=== PATIENT | male | born 1960 | race Caucasian/White ===

== ENCOUNTER 2019-08-28 01:58 | Inpatient (IN) | payer OTHER ==
[~2019-08-28] VITALS: Ht 175.3 cm; Wt 124.7 kg
[2019-08-28] MEDS ORDERED: CEFTRIAXONE SODIUM 2 GM VIAL ONE (02:38)
[2019-08-28] MEDS ORDERED: VANCOMYCIN 1GM+NS 250ML 500 ML IV ONE (02:39)
[2019-08-28] MEDS ORDERED: SODIUM CHLORIDE 0.9% 1000ML 2,000 ML IV ONE (02:40)
[2019-08-28 02:41] LABS: BASOPHILS % (AUTO) 0.2 % (0.0-5.0); EOSINOPHILS % (AUTO) 1.4 % (0.0-8.0); HEMATOCRIT 39.6 % (42-54); LYMPHOCYTES % (AUTO) 3.9 % (21.0-51.0); MEAN CORPUSCULAR HGB CONC 35.6 g/dL (32.0-36.0); MEAN CORPUSCULAR VOLUME 81.5 fL (79-99); PLATELET COUNT (AUTO) 108 K/uL (130-400); RED BLOOD CELL COUNT(AUTO) 4.86 MIL/uL (4.50-6.20); RED CELL DISTRIBUTION WIDTH 13.9 % (11.0-15.5); WHITE BLOOD COUNT (AUTO) 10.7 K/uL (4.8-10.8)
[2019-08-28 02:58] LABS: CARBON DIOXIDE 23 mmol/L (21-32); CHLORIDE 100 mmol/L (101-111); CREATININE 1.7 mg/dL (0.5-1.5); GLOMERULAR FILTR. RATE CALC 44 mL/min (>60); GLUCOSE,RANDOM 127 mg/dL (70-105); POTASSIUM 3.8 mmol/L (3.5-5.1); SODIUM SERUM 135 mmol/L (136-145); UREA NITROGEN, BLOOD 26 mg/dL (7-18)
[2019-08-28 02:59] LABS: INR 1.07 (0.85-1.15); PARTIAL THROMBOPLASTIN TIME 32.7 SEC (26.3-35.5); PROTHROMBIN TIME 11.5 SEC (9.6-11.6)
[2019-08-28] MEDS ORDERED: ONDANSETRON HCL 4 MG/2 ML VIAL ONE (03:10)
[2019-08-28] MEDS ORDERED: ACETAMINOPHEN EXTRA STRENGTH 500 MG TABLET ONE (03:11)
[2019-08-28] MEDS ORDERED: MORPHINE SULFATE 4 MG/1ML SYG ONE ×2 (03:11→04:14)
[2019-08-28 03:13] LABS: ALANINE AMINOTRANSFERASE 48 U/L (12-78); ALBUMIN 3.6 g/dL (3.5-5.0); ASPARTATE AMINOTRANSFERASE 46 U/L (10-37); MYOGLOBIN 196 ng/mL (10-92); TOTAL PROTEIN, SERUM 7.1 g/dL (6.0-8.3); TROPONIN I < 0.04 ng/mL (0.00-0.06)
[2019-08-28 03:20] LABS: CREATINE KINASE, TOTAL 439 U/L (21-232)
[2019-08-28 04:45] LABS: APPEARANCE,URINE Clear (CLEAR); BILIRUBIN,URINE Negative (NEGATIVE); COLOR,URINE Yellow (YELLOW); GLUCOSE, URINE (UA) Negative (NEGATIVE); KETONES,URINE 40 mg/dL (NEGATIVE); LEUKOCYTE ESTERASE ,URINE Negative (NEGATIVE); NITRATE,URINE Negative (NEGATIVE); OCCULT BLOOD,URINE Small (NEGATIVE); PH,URINE 5.5 (5.0-8.0); PROTEIN,URINE POS 2+ mg/dL (NEGATIVE)
[2019-08-28] MEDS ORDERED: SODIUM CHLORIDE 0.9% 1000ML 1,000 ML IV SCH (04:48)
[2019-08-28 04:55] LABS: BACTERIA,URINE None Seen /HPF (None Seen); RBC,URINE 0-1 /HPF (0-1); SQUAMOUS EPITHELIAL CELL,UR Rare /HPF (0-2); WBC,URINE None Seen /HPF (0-1)
[2019-08-28 04:56] LABS: OTHER CASTS, URINE EPITHELIAL CASTS 1+ /LPF (None Seen)
[2019-08-28] MEDS ORDERED: VANCOMYCIN PROTOCOL PER PHARMACY IV SCH (05:00)
[2019-08-28] MEDS ORDERED: LACTULOSE 20 GM/30 ML UDCUP PO PRN (05:00)
[2019-08-28] MEDS ORDERED: ONDANSETRON HCL 4 MG/2 ML VIAL IV PRN (05:00)
[2019-08-28] MEDS ORDERED: ACETAMINOPHEN 325 MG TAB PO PRN (05:00)
[2019-08-28] MEDS ORDERED: HYDRALAZINE HCL 20 MG/ML VIAL IV PRN (05:00)
[2019-08-28] MEDS: ZOSYN 3.375GM+NS 50ML 50 ML IV SCH ×3 (05:00→22:26)
[2019-08-28] MEDS ORDERED: PHARMACY COMMUNICATION MISC SCH (05:45)
[2019-08-28 06:32] LABS: HEMOGLOBIN A1C 4.9 % (4.0-6.0)
[2019-08-28] MEDS ORDERED: ENOXAPARIN SODIUM 40 MG/0.4 ML SYRINGE SQ ONE (08:53)
[2019-08-28] MEDS ORDERED: FAMOTIDINE 20MG TAB 20 MG TAB ONE (08:53)
[2019-08-28] MEDS: ENOXAPARIN SODIUM 40 MG/0.4 ML SYRINGE SQ SCH (09:00)
[2019-08-28] MEDS: FAMOTIDINE 20MG TAB 20 MG TAB PO SCH ×2 (09:00→21:00)
[2019-08-28] MEDS ORDERED: MORPHINE SULFATE 2 MG/ML 1ML SYG ONE (09:02)
[2019-08-28] MEDS ORDERED: COMPOUND IV REFRIGERATED 1 EACH IVSOLN MISC PRN (12:45)
[2019-08-28] MEDS: VANCOMYCIN 1.5 GM in SODIUM CHLORIDE 0.9% 250 ML IV SCH (13:00)
[2019-08-28] MEDS ORDERED: ZOSYN 3.375GM+NS 50ML 50 ML IV ONE (14:13)
--- NOTE | 2019-08-28 14:35 | NUR ---
INITIAL SW met with patient and spouse. Patient lives with spouse, Singh Snowden, [phone]. No home home services or DME. Patient is independent and drives. PCP is Dr. Melvin Call. Pharmacy is [facility] located [facility]. DCP is home. Addendum: 08/28/19 at 1436 by WANDY TURPIN SS Amended: Links added.
[2019-08-28] MEDS ORDERED: ACETAMINOPHEN 325 MG TAB ONE (14:58)
[2019-08-28 19:00] VITALS: BP 111/61
[2019-08-28] MEDS: DOCUSATE SODIUM 100 MG CAP PO SCH (21:43)
[2019-08-28] MEDS: MORPHINE SULFATE 4 MG/1ML SYG IV PRN (21:48)
[2019-08-28] MEDS: ACETAMINOPHEN 325 MG TAB PO PRN (21:48)
[2019-08-28 23:57] VITALS: BP 117/59
[2019-08-29 04:00] VITALS: BP 124/72
[2019-08-29 04:13] LABS: BASOPHILS % (AUTO) 0.4 % (0.0-5.0); HEMATOCRIT 33.2 % (42-54); LYMPHOCYTES % (AUTO) 6.9 % (21.0-51.0); MEAN CORPUSCULAR HEMOGLOBIN 29.4 pg (27.0-33.0); MEAN CORPUSCULAR HGB CONC 35.8 g/dL (32.0-36.0); MONOCYTES % (AUTO) 10.2 % (3.0-13.0); NEUTROPHILS % (AUTO) 81.9 % (40.0-77.0); PLATELET COUNT (AUTO) 98 K/uL (130-400); RED BLOOD CELL COUNT(AUTO) 4.05 MIL/uL (4.50-6.20); RED CELL DISTRIBUTION WIDTH 14.2 % (11.0-15.5); WHITE BLOOD COUNT (AUTO) 8.5 K/uL (4.8-10.8)
[2019-08-29] MEDS: MORPHINE SULFATE 4 MG/1ML SYG IV PRN ×4 (04:33→21:06)
[2019-08-29] MEDS: ZOSYN 3.375GM+NS 50ML 50 ML IV SCH ×3 (04:38→23:51)
[2019-08-29 04:41] LABS: CREATININE 1.1 mg/dL (0.5-1.5); POTASSIUM 3.6 mmol/L (3.5-5.1)
[2019-08-29] MEDS ORDERED: LISI10TA7 PO (04:46)
[2019-08-29] MEDS ORDERED: NAPR-1023 PO (04:46)
[2019-08-29] MEDS ORDERED: MAGN500C15 PO (04:46)
[2019-08-29 08:09] VITALS: BP 116/69
[2019-08-29] MEDS: ENOXAPARIN SODIUM 40 MG/0.4 ML SYRINGE SQ SCH (09:00)
[2019-08-29] MEDS: FAMOTIDINE 20MG TAB 20 MG TAB PO SCH ×2 (09:00→21:00)
[2019-08-29] MEDS: DOCUSATE SODIUM 100 MG CAP PO SCH ×2 (09:33→20:58)
[2019-08-29] MEDS ORDERED: POTASSIUM CHLORIDE 10% ELIXIR 20 MEQ/15 ML UDCUP PO PRN (10:45)
[2019-08-29] MEDS ORDERED: LIDOCAINE HCL-MPF 1% 2ML VIAL IV PRN ×2 (10:45)
[2019-08-29] MEDS ORDERED: POTASSIUM CHLORIDE 20 MEQ ERTAB PO ONE (10:45)
[2019-08-29] MEDS ORDERED: POTASSIUM CHLORIDE 20MEQ/100ML 100 ML IV PRN ×2 (10:45)
[2019-08-29 11:09] VITALS: BP 121/75
[2019-08-29] MEDS: POTASSIUM CHLORIDE 20 MEQ ERTAB PO PRN (13:57)
[2019-08-29] MEDS: VANCOMYCIN 1.5 GM in SODIUM CHLORIDE 0.9% 250 ML IV SCH (14:04)
[2019-08-29 16:37] VITALS: BP 124/80
[2019-08-29] MEDS: ACETAMINOPHEN 325 MG TAB PO PRN ×2 (18:29→23:58)
[2019-08-29 20:00] VITALS: BP 110/63
[2019-08-29] MEDS: SODIUM CHLORIDE 0.9% 1000ML 1,000 ML IV SCH (21:15)
[2019-08-30] VITALS (7 sets, daily range): BP systolic 108–160; BP diastolic 64–85
[2019-08-30] MEDS: MORPHINE SULFATE 2 MG/ML 1ML SYG IV PRN ×2 (05:12→17:18)
[2019-08-30 06:04] LABS: BASOPHILS % (AUTO) 0.3 % (0.0-5.0); HEMATOCRIT 35.4 % (42-54); LYMPHOCYTES % (AUTO) 6.3 % (21.0-51.0); MEAN CORPUSCULAR HEMOGLOBIN 28.9 pg (27.0-33.0); MEAN CORPUSCULAR HGB CONC 34.7 g/dL (32.0-36.0); MEAN CORPUSCULAR VOLUME 83.1 fL (79-99); MONOCYTES % (AUTO) 10.1 % (3.0-13.0); NEUTROPHILS % (AUTO) 82.6 % (40.0-77.0); PLATELET COUNT (AUTO) 128 K/uL (130-400); RED BLOOD CELL COUNT(AUTO) 4.26 MIL/uL (4.50-6.20); RED CELL DISTRIBUTION WIDTH 14.2 % (11.0-15.5); WHITE BLOOD COUNT (AUTO) 11.6 K/uL (4.8-10.8)
[2019-08-30] MEDS: ZOSYN 3.375GM+NS 50ML 50 ML IV SCH ×3 (06:04→21:24)
[2019-08-30 06:11] LABS: POTASSIUM 3.5 mmol/L (3.5-5.1)
[2019-08-30] MEDS: ENOXAPARIN SODIUM 40 MG/0.4 ML SYRINGE SQ SCH (09:00)
[2019-08-30] MEDS: FAMOTIDINE 20MG TAB 20 MG TAB PO SCH ×2 (09:00→20:43)
[2019-08-30] MEDS: LISINOPRIL 10 MG TABLET PO SCH (09:23)
[2019-08-30] MEDS: MORPHINE SULFATE 4 MG/1ML SYG IV PRN ×3 (09:23→23:07)
[2019-08-30] MEDS: DOCUSATE SODIUM 100 MG CAP PO SCH ×2 (09:23→21:24)
[2019-08-30] MEDS: SODIUM CHLORIDE 0.9% 1000ML 1,000 ML IV SCH ×2 (10:35→23:02)
[2019-08-30] MEDS ORDERED: VANCOMYCIN 1.5 GM in SODIUM CHLORIDE 0.9% 250 ML IV SCH (16:00)
--- NOTE | 2019-08-30 19:10 | NUR ---
PM Assessment Received pt with spouse at the bedside, NS at 75cc/hr infusing well, routine assessment done, plan of care discuss, reminded to keep left leg elevated on a pillow, per pt stated last BM 08/28/2019 agreed to be medicated with Lactulose in AM. Pt currently denies discomfort.
[2019-08-31 04:00] VITALS: BP 124/78
[2019-08-31] MEDS: MORPHINE SULFATE 4 MG/1ML SYG IV PRN ×3 (04:16→15:17)
[2019-08-31] MEDS: ZOSYN 3.375GM+NS 50ML 50 ML IV SCH ×3 (05:34→21:14)
[2019-08-31 06:48] LABS: BASOPHILS % (AUTO) 0.3 % (0.0-5.0); EOSINOPHILS % (AUTO) 0.4 % (0.0-8.0); HEMATOCRIT 32.2 % (42-54); LYMPHOCYTES % (AUTO) 7.5 % (21.0-51.0); MEAN CORPUSCULAR HEMOGLOBIN 28.6 pg (27.0-33.0); MEAN CORPUSCULAR HGB CONC 34.8 g/dL (32.0-36.0); MEAN CORPUSCULAR VOLUME 82.1 fL (79-99); MONOCYTES % (AUTO) 10.4 % (3.0-13.0); NEUTROPHILS % (AUTO) 80.1 % (40.0-77.0); PLATELET COUNT (AUTO) 139 K/uL (130-400); RED BLOOD CELL COUNT(AUTO) 3.92 MIL/uL (4.50-6.20); RED CELL DISTRIBUTION WIDTH 13.9 % (11.0-15.5)
[2019-08-31 06:59] LABS: CREATININE 0.8 mg/dL (0.5-1.5); POTASSIUM 3.3 mmol/L (3.5-5.1)
[2019-08-31 08:00] VITALS: BP 123/76
[2019-08-31] MEDS: FAMOTIDINE 20MG TAB 20 MG TAB PO SCH ×2 (09:00→21:00)
[2019-08-31] MEDS: POTASSIUM CHLORIDE 20 MEQ ERTAB PO PRN ×2 (10:06→15:16)
[2019-08-31] MEDS: DOCUSATE SODIUM 100 MG CAP PO SCH ×2 (10:06→21:14)
[2019-08-31] MEDS: LISINOPRIL 10 MG TABLET PO SCH (10:07)
[2019-08-31] MEDS: ENOXAPARIN SODIUM 40 MG/0.4 ML SYRINGE SQ SCH (10:13)
[2019-08-31 11:00] VITALS: BP 149/96
[2019-08-31] MEDS: SODIUM CHLORIDE 0.9% 1000ML 1,000 ML IV SCH ×2 (13:15→20:45)
[2019-08-31 16:00] VITALS: BP 113/58
[2019-08-31] MEDS ORDERED: VANCOMYCIN 1.5 GM in SODIUM CHLORIDE 0.9% 250 ML IV SCH (18:15)
[2019-08-31 20:24] VITALS: BP 122/75
[2019-09-01] VITALS (7 sets, daily range): BP systolic 95–143; BP diastolic 58–99
[2019-09-01] MEDS: VANCOMYCIN 1.25 GM in SODIUM CHLORIDE 0.9% 250 ML IV SCH ×2 (02:08→10:15)
[2019-09-01] MEDS: ZOSYN 3.375GM+NS 50ML 50 ML IV SCH ×3 (05:13→22:06)
[2019-09-01] MEDS: LISINOPRIL 10 MG TABLET PO SCH (08:44)
[2019-09-01] MEDS: ENOXAPARIN SODIUM 40 MG/0.4 ML SYRINGE SQ SCH (08:44)
[2019-09-01] MEDS: DOCUSATE SODIUM 100 MG CAP PO SCH ×2 (08:44→22:06)
[2019-09-01] MEDS: FAMOTIDINE 20MG TAB 20 MG TAB PO SCH ×2 (09:00→21:00)
[2019-09-01] MEDS: MORPHINE SULFATE 4 MG/1ML SYG IV PRN ×3 (11:27→22:09)
[2019-09-01 13:26] LABS: HEMATOCRIT 35.5 % (42-54); MEAN CORPUSCULAR HEMOGLOBIN 28.7 pg (27.0-33.0); MEAN CORPUSCULAR HGB CONC 34.6 g/dL (32.0-36.0); MEAN CORPUSCULAR VOLUME 82.8 fL (79-99); PLATELET COUNT (AUTO) 197 K/uL (130-400); RED BLOOD CELL COUNT(AUTO) 4.29 MIL/uL (4.50-6.20); RED CELL DISTRIBUTION WIDTH 13.8 % (11.0-15.5); WHITE BLOOD COUNT (AUTO) 10.4 K/uL (4.8-10.8)
[2019-09-01 13:43] LABS: ALBUMIN 2.1 g/dL (3.5-5.0); CREATININE 0.9 mg/dL (0.5-1.5); POTASSIUM 4.2 mmol/L (3.5-5.1); TOTAL PROTEIN, SERUM 6.5 g/dL (6.0-8.3)
[2019-09-01] MEDS: FUROSEMIDE 10 MG/ML 4ML VIAL IV SCH (17:46)
[2019-09-02] VITALS (7 sets, daily range): BP systolic 112–126; BP diastolic 68–83
[2019-09-02] MEDS: VANCOMYCIN 1.25 GM in SODIUM CHLORIDE 0.9% 250 ML IV SCH ×3 (01:27→18:31)
[2019-09-02] MEDS ORDERED: SODIUM CHLORIDE 0.9% 250 ML IV ONE (01:30)
[2019-09-02] MEDS: MORPHINE SULFATE 4 MG/1ML SYG IV PRN ×4 (04:17→20:20)
[2019-09-02] MEDS: ZOSYN 3.375GM+NS 50ML 50 ML IV SCH ×3 (04:45→20:20)
[2019-09-02 05:46] LABS: BASOPHILS % (AUTO) 0.5 % (0.0-5.0); EOSINOPHILS % (AUTO) 1.1 % (0.0-8.0); HEMATOCRIT 31.1 % (42-54); LYMPHOCYTES % (AUTO) 10.2 % (21.0-51.0); MEAN CORPUSCULAR HEMOGLOBIN 28.6 pg (27.0-33.0); MEAN CORPUSCULAR HGB CONC 34.7 g/dL (32.0-36.0); MEAN CORPUSCULAR VOLUME 82.5 fL (79-99); MONOCYTES % (AUTO) 10.1 % (3.0-13.0); NEUTROPHILS % (AUTO) 75.8 % (40.0-77.0); PLATELET COUNT (AUTO) 214 K/uL (130-400); RED BLOOD CELL COUNT(AUTO) 3.77 MIL/uL (4.50-6.20); RED CELL DISTRIBUTION WIDTH 13.7 % (11.0-15.5); WHITE BLOOD COUNT (AUTO) 8.7 K/uL (4.8-10.8)
[2019-09-02 08:17] LABS: ALBUMIN 1.8 g/dL (3.5-5.0); BILIRUBIN,TOTAL 0.8 mg/dL (0.2-1.0); CREATININE 0.9 mg/dL (0.5-1.5); POTASSIUM 3.1 mmol/L (3.5-5.1); TOTAL PROTEIN, SERUM 5.9 g/dL (6.0-8.3)
[2019-09-02] MEDS: FAMOTIDINE 20MG TAB 20 MG TAB PO SCH ×2 (09:00→20:27)
[2019-09-02] MEDS: LISINOPRIL 10 MG TABLET PO SCH (09:01)
[2019-09-02] MEDS: DOCUSATE SODIUM 100 MG CAP PO SCH ×2 (09:01→20:20)
[2019-09-02] MEDS: ENOXAPARIN SODIUM 40 MG/0.4 ML SYRINGE SQ SCH (09:02)
[2019-09-02] MEDS: FUROSEMIDE 10 MG/ML 4ML VIAL IV SCH (16:30)
[2019-09-03] VITALS (7 sets, daily range): BP systolic 114–150; BP diastolic 72–104
[2019-09-03] MEDS: VANCOMYCIN 1.25 GM in SODIUM CHLORIDE 0.9% 250 ML IV SCH ×3 (02:35→21:08)
[2019-09-03] MEDS: ZOSYN 3.375GM+NS 50ML 50 ML IV SCH ×3 (04:04→21:07)
[2019-09-03] MEDS: MORPHINE SULFATE 4 MG/1ML SYG IV PRN (04:04)
[2019-09-03 05:00] LABS: BASOPHILS % (AUTO) 0.4 % (0.0-5.0); HEMATOCRIT 33.5 % (42-54); LYMPHOCYTES % (AUTO) 9.6 % (21.0-51.0); MEAN CORPUSCULAR HEMOGLOBIN 28.7 pg (27.0-33.0); MEAN CORPUSCULAR HGB CONC 34.6 g/dL (32.0-36.0); MEAN CORPUSCULAR VOLUME 82.9 fL (79-99); MONOCYTES % (AUTO) 10.3 % (3.0-13.0); NEUTROPHILS % (AUTO) 77.3 % (40.0-77.0); PLATELET COUNT (AUTO) 261 K/uL (130-400); RED BLOOD CELL COUNT(AUTO) 4.04 MIL/uL (4.50-6.20); RED CELL DISTRIBUTION WIDTH 13.6 % (11.0-15.5); WHITE BLOOD COUNT (AUTO) 10.5 K/uL (4.8-10.8)
[2019-09-03 05:19] LABS: ALBUMIN 1.9 g/dL (3.5-5.0); BILIRUBIN,TOTAL 0.9 mg/dL (0.2-1.0); CREATININE 0.9 mg/dL (0.5-1.5); POTASSIUM 3.5 mmol/L (3.5-5.1); TOTAL PROTEIN, SERUM 6.4 g/dL (6.0-8.3)
[2019-09-03] MEDS: LISINOPRIL 10 MG TABLET PO SCH (08:57)
[2019-09-03] MEDS: DOCUSATE SODIUM 100 MG CAP PO SCH ×2 (08:57→21:07)
[2019-09-03] MEDS: ENOXAPARIN SODIUM 40 MG/0.4 ML SYRINGE SQ SCH (08:57)
[2019-09-03] MEDS: FAMOTIDINE 20MG TAB 20 MG TAB PO SCH ×2 (09:00→21:00)
[2019-09-03] MEDS: MORPHINE SULFATE 2 MG/ML 1ML SYG IV PRN ×3 (09:00→18:17)
[2019-09-03] MEDS: RANITIDINE HCL 15 MG/1 ML PO SCH ×2 (12:38→21:07)
--- NOTE | 2019-09-03 14:10 | NUR ---
RD NOTIFICATION RD CONSULTS DUE TO LOS X 6. LEFT LOWER ULCER AND ABSCESS PRESENT. DIET: HEART HEALTHY. PO INTAKE 50-75% AND REPORTS HAVING MODERATE APPETITE. LABS AND MEDS REVIEWED. LBM: 09/01. RD RECOMMENDS TO ADD 30ML PROMOD BID TO DIET ORDER Addendum: 09/03/19 at [address] Amended: Links added.
[2019-09-03] MEDS: FUROSEMIDE 10 MG/ML 4ML VIAL IV SCH (18:18)
[2019-09-04 03:00] VITALS: BP 131/78
[2019-09-04] MEDS: VANCOMYCIN 1.25 GM in SODIUM CHLORIDE 0.9% 250 ML IV SCH ×3 (04:40→21:58)
[2019-09-04] MEDS: ZOSYN 3.375GM+NS 50ML 50 ML IV SCH ×3 (04:40→21:57)
[2019-09-04 04:54] LABS: BASOPHILS % (AUTO) 0.6 % (0.0-5.0); HEMATOCRIT 31.6 % (42-54); LYMPHOCYTES % (AUTO) 9.9 % (21.0-51.0); MEAN CORPUSCULAR HEMOGLOBIN 28.5 pg (27.0-33.0); MEAN CORPUSCULAR HGB CONC 34.5 g/dL (32.0-36.0); MEAN CORPUSCULAR VOLUME 82.7 fL (79-99); MONOCYTES % (AUTO) 10.7 % (3.0-13.0); NEUTROPHILS % (AUTO) 77.1 % (40.0-77.0); PLATELET COUNT (AUTO) 244 K/uL (130-400); RED BLOOD CELL COUNT(AUTO) 3.82 MIL/uL (4.50-6.20); RED CELL DISTRIBUTION WIDTH 13.4 % (11.0-15.5)
[2019-09-04] MEDS: MORPHINE SULFATE 4 MG/1ML SYG IV PRN (05:06)
[2019-09-04 05:30] LABS: ALBUMIN 1.8 g/dL (3.5-5.0); BILIRUBIN,TOTAL 0.8 mg/dL (0.2-1.0); CREATININE 0.9 mg/dL (0.5-1.5); POTASSIUM 3.3 mmol/L (3.5-5.1); TOTAL PROTEIN, SERUM 6.3 g/dL (6.0-8.3)
[2019-09-04 08:06] VITALS: BP 130/85
[2019-09-04] MEDS: POTASSIUM CHLORIDE 20 MEQ ERTAB PO PRN (08:58)
[2019-09-04] MEDS: RANITIDINE HCL 15 MG/1 ML PO SCH ×2 (08:58→21:57)
[2019-09-04] MEDS: LISINOPRIL 10 MG TABLET PO SCH (08:58)
[2019-09-04] MEDS: DOCUSATE SODIUM 100 MG CAP PO SCH ×2 (08:58→21:57)
[2019-09-04] MEDS: ENOXAPARIN SODIUM 40 MG/0.4 ML SYRINGE SQ SCH (08:59)
[2019-09-04] MEDS: FAMOTIDINE 20MG TAB 20 MG TAB PO SCH ×2 (09:00→21:00)
[2019-09-04] MEDS ORDERED: POTASSIUM CHLORIDE 20 MEQ ERTAB PO SCH (09:45)
[2019-09-04] MEDS ORDERED: HYDROCODONE/ACETAMINOPHEN 5/325 MG TAB PO SCH (09:45)
[2019-09-04 12:00] VITALS: BP 132/88
--- NOTE | 2019-09-04 15:15 | NUR ---
REFERRAL SENT TO [facility] FOR [facility] FACE SHEET AND ORDER SENT TO CHECK BENENFITS. [facility]TON CALLED BACK WITH CONFIRMATION OF SNF BENEFITS, AND REFERRAL SENT EXCEPT [facility] AT LEAST TOMORROW Addendum: 09/04/19 at 1521 by RAFIQ BARRIENTOS RN CM Amended: Links added.
[2019-09-04 15:42] LABS: INR 1.07 (0.85-1.15); PROTHROMBIN TIME 11.5 SEC (9.6-11.6)
[2019-09-04 16:00] VITALS: BP 133/76
[2019-09-04] MEDS: FUROSEMIDE 10 MG/ML 4ML VIAL IV SCH (16:30)
[2019-09-04] MEDS: HYDROCODONE/ACETAMINOPHEN 5/325 MG TAB PO PRN (17:26)
[2019-09-04 19:57] VITALS: BP 124/72
--- NOTE | 2019-09-04 21:38 | NUR ---
PHARMACY SPOKE TO PHARMACIST SAMANTHA REGARDING MISSED DRAW OF VANCO TROUGH DUE 09/03 @ 1800. HE INSTRUCTED ME TO GIVE THE NEXT SCHEDULED DOSES FROM 2000 AND 0400. DRAW THE VANCO TROUGH PRIOR TO 1200 DOSE TOMORROW.
[2019-09-04 23:54] VITALS: BP 123/79
[2019-09-05] MEDS: HYDROCODONE/ACETAMINOPHEN 5/325 MG TAB PO PRN ×2 (00:10→12:17)
[2019-09-05 03:47] VITALS: BP 121/77
[2019-09-05] MEDS: VANCOMYCIN 1.25 GM in SODIUM CHLORIDE 0.9% 250 ML IV SCH ×2 (04:47→12:12)
[2019-09-05] MEDS: ZOSYN 3.375GM+NS 50ML 50 ML IV SCH ×2 (04:47→14:32)
[2019-09-05 05:40] LABS: BASOPHILS % (AUTO) 0.5 % (0.0-5.0); HEMATOCRIT 34.3 % (42-54); LYMPHOCYTES % (AUTO) 11.2 % (21.0-51.0); MEAN CORPUSCULAR HEMOGLOBIN 28.8 pg (27.0-33.0); MEAN CORPUSCULAR HGB CONC 34.4 g/dL (32.0-36.0); MEAN CORPUSCULAR VOLUME 83.7 fL (79-99); MONOCYTES % (AUTO) 10.7 % (3.0-13.0); PLATELET COUNT (AUTO) 262 K/uL (130-400); RED CELL DISTRIBUTION WIDTH 13.6 % (11.0-15.5); WHITE BLOOD COUNT (AUTO) 8.5 K/uL (4.8-10.8)
[2019-09-05 05:56] LABS: BILIRUBIN,TOTAL 0.8 mg/dL (0.2-1.0); CREATININE 0.9 mg/dL (0.5-1.5); POTASSIUM 3.8 mmol/L (3.5-5.1)
[2019-09-05] MEDS: FAMOTIDINE 20MG TAB 20 MG TAB PO SCH (09:00)
[2019-09-05 09:17] VITALS: BP 132/76
[2019-09-05] MEDS: DOCUSATE SODIUM 100 MG CAP PO SCH (09:19)
[2019-09-05] MEDS: LISINOPRIL 10 MG TABLET PO SCH (09:19)
[2019-09-05] MEDS: ENOXAPARIN SODIUM 40 MG/0.4 ML SYRINGE SQ SCH (09:19)
[2019-09-05] MEDS: RANITIDINE HCL 15 MG/1 ML PO SCH (09:19)
[2019-09-05 11:29] VITALS: BP 138/85
--- NOTE | 2019-09-05 15:17 | NUR ---
DISCHARGE PATIENT GIVEN DISCHARGE INSTRUCTIONS VIA TEACH BACK. PICC LINE TO JESUS PATENT, LAST DRESSING CHANGED 09/04/19. PATIENT TO TRANSFER TO [facility] TODAY. REPORT GIVEN TO JENARO GARVIN. NATALIE PRESENT TO TRANSPORT PATIENT TO [facility] VIA VAN. PATIENT STABLE AT THIS TIME.
== END 2019-09-05 15:30 | DRG 871 ==
LOC: EDH 01:58 → EDHIP 04:48 → 4CH 18:42
PROVIDERS: ADMIT Internal Medicine; ATTEND Internal Medicine
DX: A41.9 Sepsis, unspecified organism (principal); N17.0 Acute kidney failure with tubular necrosis; L03.116 Cellulitis of left lower limb; L97.808 Non-pressure chronic ulcer of other part of unspecified lower leg with other specified severity; Z68.41 Body mass index [BMI] 40.0-44.9, adult; E66.01 Morbid (severe) obesity due to excess calories; E87.6 Hypokalemia; I10 Essential (primary) hypertension; I73.9 Peripheral vascular disease, unspecified; I87.2 Venous insufficiency (chronic) (peripheral); K59.00 Constipation, unspecified; R53.81 Other malaise; M54.9 Dorsalgia, unspecified; Z82.0 Family history of epilepsy and other diseases of the nervous system; Z82.3 Family history of stroke; Z82.49 Family history of ischemic heart disease and other diseases of the circulatory system; Z83.3 Family history of diabetes mellitus; Z82.5 Family history of asthma and other chronic lower respiratory diseases
CPT/HCPCS: 36415; 71045; 73620; 73700; 73718; 76882; 80048; 80053; 80202; 81001; 82550; 83036; 83605; 83874; 84145; 84484; 85025; 85027; 85610; 85730; 87040; 87070; 87076; 87077; 87088; 87186; 93005; 93971; 97039; G0378; J0696; J1650; J1940; J2270; J2405; J2543; J3370; J7030

== ENCOUNTER → 2025-04-29 | Outpatient (CLI) | payer OTHER ==
[~2025-04-29] MED LIST: LISI10TA24 PO; MAGN500C4 PO; NAPR-1194 PO
--- NOTE | 2025-04-30 00:02 | HMCIMG ---
CT SCAN OF THE PELVIS Clinical Indication: Unspecified fracture of the sacrum. Comparison: No prior imaging is available for comparison. Radiation Dose: Total exam DLP: 1055 mGy???cm. Contrast: None. Findings: Bones: There is an old, healing, undisplaced fracture involving the left sacral ala, extending vertically across the sacral neural foramina. Alignment of the sacrum is otherwise preserved. Bilateral hip joints show degenerative changes with marginal osteophytes and joint space narrowing. Degenerative changes are also noted in the visualized lumbar spine, including grade I anterolisthesis of L5 over S1 with bilateral L5 spondylolysis. Soft Tissues: No abnormal soft tissue swelling or collection is identified in the pelvic region. Abdominal and Pelvic Organs (Visualized Portions): Multiple colonic diverticula are incidentally noted, suggestive of diverticulosis without surrounding inflammation. Atheromatous calcifications are seen along the visualized portions of the abdominal arteries. Mild prostatomegaly is present. Impression: * Old, healing fracture of the left sacral ala extending across the sacral neural foramina. * Grade I degenerative anterolisthesis of L5 over S1 with bilateral L5 spondylolysis. /[place]
== END | disposition home or self-care (01) ==
LOC: RAH 14:06
PROVIDERS: ATTEND Internal Medicine
DX: S32.10XA Unspecified fracture of sacrum, initial encounter for closed fracture (principal); M16.0 Bilateral primary osteoarthritis of hip; M25.752 Osteophyte, left hip; M25.751 Osteophyte, right hip; M47.816 Spondylosis without myelopathy or radiculopathy, lumbar region; M43.17 Spondylolisthesis, lumbosacral region; I25.10 Atherosclerotic heart disease of native coronary artery without angina pectoris; N40.0 Benign prostatic hyperplasia without lower urinary tract symptoms; X58.XXXA Exposure to other specified factors, initial encounter; Y93.89 Activity, other specified; Y92.89 Other specified places as the place of occurrence of the external cause; Y99.8 Other external cause status
CPT/HCPCS: 72192